=== PATIENT | female | born 1940 | race Caucasian/White ===

== ENCOUNTER 2016-11-22 10:17 | Day surgery (SDC) | payer MEDICAID ==
[~2016-11-22] VITALS: Ht 160 cm; Wt 77.1 kg
[2016-11-22] MEDS ORDERED: BENA20TA PO (11:42)
[2016-11-22] MEDS ORDERED: METF850T PO (11:42)
[2016-11-22] MEDS ORDERED: GLIP5TER PO (11:42)
[2016-11-22] MEDS ORDERED: LIDOCAINE 2% 100 MG/5 ML UJET TP ONE ×2 (13:02→13:26)
== END 2016-11-22 14:30 | disposition home or self-care (01) ==
LOC: MDS 10:17 → MMU 10:39 → MDS 14:30
PROVIDERS: ATTEND Internal Medicine Gastroenterology
DX: D12.3 Benign neoplasm of transverse colon (principal); D12.2 Benign neoplasm of ascending colon; K57.30 Diverticulosis of large intestine without perforation or abscess without bleeding; I10 Essential (primary) hypertension; E78.5 Hyperlipidemia, unspecified; E11.9 Type 2 diabetes mellitus without complications; E66.09 Other obesity due to excess calories; Z79.899 Other long term (current) drug therapy
CPT/HCPCS: 82948